=== PATIENT | female | born 1980 ===

== ENCOUNTER 2023-01-10 09:56 | Inpatient (IN) | payer OTHER ==
[~2023-01-10] VITALS: Ht 152.4 cm; Wt 76.2 kg
[2023-01-10] MEDS ORDERED: PRENATAL + DHA1 EAC1 PO (12:59)
== END 2023-01-13 14:27 | disposition home or self-care (01) | DRG 783 ==
LOC: LDR 09:56 → O/R 13:53 → OB/GYN 13:56
PROVIDERS: ADMIT Specialist; ATTEND Specialist
PROC: 0UB70ZZ Excision of Bilateral Fallopian Tubes, Open Approach (ICD-10-PCS; 2023-01-10)
PROC: 4A1HXCZ Monitoring of Products of Conception, Cardiac Rate, External Approach (ICD-10-PCS; 2023-01-10)
PROC: 10D00Z1 Extraction of Products of Conception, Low, Open Approach (ICD-10-PCS; principal; 2023-01-10 13:00)
PROC: 30233N1 Transfusion of Nonautologous Red Blood Cells into Peripheral Vein, Percutaneous Approach (ICD-10-PCS; 2023-01-11)
DX: O60.14X0 Preterm labor third trimester with preterm delivery third trimester, not applicable or unspecified (principal); O45.8X3 Other premature separation of placenta, third trimester; O42.113 Preterm premature rupture of membranes, onset of labor more than 24 hours following rupture, third trimester; O34.211 Maternal care for low transverse scar from previous cesarean delivery; O67.8 Other intrapartum hemorrhage; Z30.2 Encounter for sterilization; Z20.822 Contact with and (suspected) exposure to COVID-19; Z3A.33 33 weeks gestation of pregnancy; Z37.0 Single live birth